=== PATIENT | male | born 1955 | race Caucasian/White ===

== ENCOUNTER → 2016-06-12 | Outpatient (CLI) | payer BC | END | disposition home or self-care (01) | LOC: PMGWOUND 11:32 | PROVIDERS: ATTEND Emergency Medicine Undersea and Hyperbaric Medicine | DX: I87.311 Chronic venous hypertension (idiopathic) with ulcer of right lower extremity (principal); L97.211 Non-pressure chronic ulcer of right calf limited to breakdown of skin | CPT/HCPCS: 11042; 29581 ==

== ENCOUNTER → 2016-06-15 | Outpatient (CLI) | payer BC | END | disposition home or self-care (01) | LOC: PMGWOUND 11:30 | PROVIDERS: ATTEND Preventive Medicine Undersea and Hyperbaric Medicine | DX: I87.311 Chronic venous hypertension (idiopathic) with ulcer of right lower extremity (principal); L97.212 Non-pressure chronic ulcer of right calf with fat layer exposed; Z72.89 Other problems related to lifestyle | CPT/HCPCS: 29581 ==

== ENCOUNTER → 2016-06-21 | Outpatient (CLI) | payer BC | END | disposition home or self-care (01) | LOC: PMGWOUND 11:52 | PROVIDERS: ATTEND Emergency Medicine Undersea and Hyperbaric Medicine | DX: I87.311 Chronic venous hypertension (idiopathic) with ulcer of right lower extremity (principal); L97.212 Non-pressure chronic ulcer of right calf with fat layer exposed; E78.00 Pure hypercholesterolemia, unspecified; Z72.89 Other problems related to lifestyle | CPT/HCPCS: 29581 ==

== ENCOUNTER → 2016-06-28 | Outpatient (CLI) | payer BC | END | disposition home or self-care (01) | LOC: PMGWOUND 09:28 | PROVIDERS: ATTEND Preventive Medicine Undersea and Hyperbaric Medicine | DX: I87.311 Chronic venous hypertension (idiopathic) with ulcer of right lower extremity (principal); L97.211 Non-pressure chronic ulcer of right calf limited to breakdown of skin; E78.00 Pure hypercholesterolemia, unspecified | CPT/HCPCS: 29581 ==

== ENCOUNTER → 2016-07-05 | Outpatient (CLI) | payer BC | END | disposition home or self-care (01) | LOC: PMGWOUND 09:59 | PROVIDERS: ATTEND Emergency Medicine Undersea and Hyperbaric Medicine | DX: I87.311 Chronic venous hypertension (idiopathic) with ulcer of right lower extremity (principal); L97.212 Non-pressure chronic ulcer of right calf with fat layer exposed; Z72.89 Other problems related to lifestyle | CPT/HCPCS: 99213 ==

== ENCOUNTER → 2018-10-20 | Outpatient (CLI) | payer BC ==
--- NOTE | 2018-10-20 15:02 | RAD ---
EXAM: Lower extremity arterial Doppler sonogram with ankle-brachial indices (LOIS). HISTORY: Claudication. TECHNIQUE: Doppler sonographic evaluation of the lower extremities was performed and pressure readings were assessed. FINDINGS: Right brachial pressure: 149 mmHg Left brachial pressure: 139 mmHg Right ankle pressure: 173 mmHg Right LOIS: 1.16 Left ankle pressure: 137 mmHg Left LOIS: 1.05 IMPRESSION: Normal bilateral ankle-brachial indices. Electronically signed by: Jazmyn Hanley MD (10/20/2018 2:59 PM) [place] [id number]
== END | disposition home or self-care (01) ==
LOC: US 13:36
PROVIDERS: ATTEND Family Medicine
DX: I70.213 Atherosclerosis of native arteries of extremities with intermittent claudication, bilateral legs (principal)
CPT/HCPCS: 93922

== ENCOUNTER 2020-04-17 16:18 | Observation (INO) | payer BC ==
[~2020-04-17] VITALS: Ht 188 cm; Wt 151.5 kg
--- NOTE | 2020-04-17 16:40 | PHYS DOC ---
Past Medical History Past Medical History: Hypertension General Adult EDM: Chief Complaint: right leg wound, pain HPI: HPI: Patient is a 64 year old male who was brought here by EMS from home due to right lower extremity pain and swelling for 1 month. Patient has history of venous stasis, he is having pain and swelling of Right leg a months ago, getting worse. The last few days his right lower extremity became ulcerated with draining discharge. Patient denies any cough or fever. Patient denies any history of diabetic, he denies being exposed to anybody who tested positive for COVID-19. Review of Systems: Review of Systems: Constitutional: Denies fever or chills. [] Eyes: Denies change in visual acuity. [] HENT: Denies nasal congestion or sore throat. [] Respiratory: Denies cough or shortness of breath. [] Cardiovascular: Denies chest pain or edema. [] GI: Denies abdominal pain, nausea, vomiting, bloody stools or diarrhea. [] : Denies dysuria. [] Musculoskeletal: Positive for right leg pain,swelling Integument: Positive for right leg ulcerated lesions. Neurologic: Denies headache, focal weakness or sensory changes. [] Endocrine: Denies polyuria or polydipsia. [] Lymphatic: Denies swollen glands. [] Psychiatric: Denies depression or anxiety. [] Heart Score: Risk Factors: Risk Factors: DM, Current or recent (<one month) smoker, HTN, HLP, family history of CAD, obesity. Risk Scores: Score 0 - 3: 2.5% MACE over next 6 weeks - Discharge Home Score 4 - 6: 20.3% MACE over next 6 weeks - Admit for Clinical Observation Score 7 - 10: 72.7% MACE over next 6 weeks - Early Invasive Strategies Physical Exam: PE: Constitutional: Well developed, well nourished, no acute distress, non-toxic appearance. [] HENT: Normocephalic, atraumatic, bilateral external ears normal, oropharynx moist, no oral exudates, nose normal. [] Eyes: PERRLA, EOMI, conjunctiva normal, no discharge. [] Neck: Normal range of motion, no tenderness, supple, no stridor. [] Cardiovascular:Heart rate regular rhythm, no murmur [] Lungs & Thorax: Bilateral breath sounds clear to auscultation [] Abdomen: Bowel sounds normal, soft, no tenderness, no masses, no pulsatile masses. [] Skin: Warm, dry, no erythema, no rash. [] Back: No tenderness, no CVA tenderness. [] Extremities right leg is swelling, erythema, tender to palpation. There are large ulcerated lesions on distal right leg, venous stasis appearing on the right leg, . Left leg with venous stasis. Both lower extremities are warm to the touch Neurologic: Alert and oriented X 3, normal motor function, normal sensory function, no focal deficits noted. [] Psychologic: Affect normal, judgement normal, mood normal. [] Current Patient Data: Labs: Laboratory Tests Test 04/17/20 17:08 White Blood Count 8.1 x10^3/uL Red Blood Count 4.74 x10^6/uL Hemoglobin 14.0 g/dL Hematocrit 41.7 % Mean Corpuscular Volume 88 fL Mean Corpuscular Hemoglobin 30 pg Mean Corpuscular Hemoglobin Concent 34 g/dL Red Cell Distribution Width 15.3 % Platelet Count 181 x10^3/uL Neutrophils (%) (Auto) 75 % Lymphocytes (%) (Auto) 12 % Monocytes (%) (Auto) 11 % Eosinophils (%) (Auto) 2 % Basophils (%) (Auto) 1 % Neutrophils # (Auto) 6.0 x10^3/uL Lymphocytes # (Auto) 0.9 x10^3/uL Monocytes # (Auto) 0.9 x10^3/uL Eosinophils # (Auto) 0.2 x10^3/uL Basophils # (Auto) 0.0 x10^3/uL Sodium Level 138 mmol/L Potassium Level 3.7 mmol/L Chloride Level 99 mmol/L Carbon Dioxide Level 27 mmol/L Anion Gap 12 Blood Urea Nitrogen 19 mg/dL Creatinine 1.0 mg/dL Estimated GFR (Cockcroft-Gault) 75.0 BUN/Creatinine Ratio 19 Glucose Level 110 mg/dL Calcium Level 8.6 mg/dL Total Bilirubin 0.5 mg/dL Aspartate Amino Transf (AST/SGOT) 37 U/L Alanine Aminotransferase (ALT/SGPT) 44 U/L Alkaline Phosphatase 79 U/L C-Reactive Protein, Quantitative 9.0 mg/L Total Protein 7.8 g/dL Albumin 3.8 g/dL Albumin/Globulin Ratio 1.0 Current Medications Medications (Trade) Dose Ordered Sig/Cherelle Route PRN Reason Start Time Stop Time Status Last Admin Dose Admin Vancomycin HCl (Vanco Per Pharmacy) 1 each PRN DAILY PRN MC SEE COMMENTS 04/17/20 16:45 UNV Ondansetron HCl (Zofran) 4 mg PRN Q8HRS PRN IV NAUSEA/VOMITING 04/17/20 18:00 04/18/20 17:59 Morphine Sulfate (Morphine Sulfate) 4 mg PRN Q2HR PRN IV PAIN 04/17/20 18:00 04/18/20 17:59 EKG: EKG: [] Radiology/Procedures: Radiology/Procedures: [] Course & Med Decision Making: Course & Med Decision Making Pertinent Labs and Imaging studies reviewed. (See chart for details) [] Dragon Disclaimer: Dragon Disclaimer: This electronic medical record was generated, in whole or in part, using a voice recognition dictation system. Departure Departure Impression: Primary Impression: Cellulitis and abscess of right leg Disposition: ADMITTED INPT THIS HOSP Admitting Physician: ISAAK (Dr. Rodrigues) Condition: STABLE Referrals: Kezia CRAFT MD (PCP) MELINAD DILLON DO Apr 17, 2020 16:40
[2020-04-17 17:33] LABS: BASO % 1 % (0-3); EOS # 0.2 x10^3/uL (0.0-0.7); EOS % 2 % (0-3); HEMATOCRIT 41.7 % (39.0-53.0); LYMPH # 0.9 x10^3/uL (1.0-4.8); LYMPH % 12 % (24-48); MEAN CORPUSCULAR HEMOGLOBIN 30 pg (25-35); MEAN CORPUSCULAR HGB CONC 34 g/dL (31-37); MEAN CORPUSCULAR VOLUME 88 fL (79-100); MONO # 0.9 x10^3/uL (0.0-1.1); MONO % 11 % (0-9); NEUT % 75 % (31-73); PLATELET COUNT 181 x10^3/uL (140-400); RED BLOOD COUNT 4.74 x10^6/uL (4.30-5.70); RED CELL DISTRIBUTION WIDTH 15.3 % (11.5-14.5); WHITE BLOOD COUNT 8.1 x10^3/uL (4.0-11.0)
--- NOTE | 2020-04-17 17:48 | PDOC1 ---
History and Physical Date of Admission Date of Admission DATE: 04/17/20 TIME: 17:47 Identification/Chief Complaint Chief Complaint Leg drainage Source Source: Caregiver, Chart review, Patient History of Present Illness History of Present Illness Mr Hardwick is a 64 yo M w/ PMHx HTN, morbid obesity, HLD who was brought here by EMS from home due to right lower extremity pain and swelling for 1 month. Patient has history of venous stasis, he is having pain and swelling of Right leg a months ago, getting worse. The last few days his right lower extremity became ulcerated with draining discharge. Patient denies any cough or fever. Patient denies any history of diabetic, he denies being exposed to anybody who tested positive for COVID-19. His friend and neighbor, Negro is present bedside to note that the son of his DPOA came to visit and drop off food for the patient and noted a feculent smell from the home. Patient was noted with socks and backside and right leg wound and fingernails saturated with fecal matter. Patient on interview asks to defer to his friend for many questions, he notes that he has some cognitive difficulties and delay. He lived with his mother until she some years ago and his mother designated an aunt as DPOA, who is currently a [facility] resident herself. WBC 8.1 with left shift, CRP 9. Venous doppler negative for DVT. Admitted for further treatment. Past Medical History Cardiovascular: HTN, Hyperlipidemia Past Surgical History Past Surgical History: No pertinent history Family History Family History: Alzheimer's Disease, High Cholestrol, Hypertension Social History Smoke: No ALCOHOL: none Drugs: None Current Problem List Problem List Problems Medical Problems: (1) Cellulitis and abscess of right leg Status: Acute Current Medications Current Medications Current Medications Vancomycin HCl (Vanco Per Pharmacy) 1 each PRN DAILY PRN MC SEE COMMENTS; Start 04/17/20 at 16:45; Status UNV Allergies Allergies: Coded Allergies: No Known Drug Allergies (Unverified , 04/17/20) ROS General: YES: Fatigue, Malaise; No: Chills, Night Sweats, Appetite, Other PSYCHOLOGICAL ROS: YES: Memory difficulties; No: Anxiety, Behavioral Disorder, Concentration difficultie, Decreased libido, Depression, Disorientation, Hallucinations, Hostility, Irritablity, Mood Swings, Obsessive thoughts, Physical abuse, Sexual abuse, Sleep disturbances, Suicidal ideation, Other Eyes: No Blurry vision, No Decreased vision, No Double vision, No Dry eyes, No Excessive tearing, No Eye Pain, No Itchy Eyes, No Loss of vision, No Photophobia, No Scotomata, No Uses contacts, No Uses glasses, No Other HEENT: No: Heacaches, Visual Changes, Hearing change, Nasal congestion, Nasal discharge, Oral lesions, Sinus pain, Sore Throat, Epistaxis, Sneezing, Snoring, Tinnitus, Vertigo, Vocal changes, Other ALLERGY AND IMMUNOLOGY: No: Hives, Insect Bite Sensitivity, Itchy/Watery Eyes, Nasal Congestion, Post Nasal Drip, Seasonal Allergies, Other Hematological and Lymphatic: No: Bleeding Problems, Blood Clots, Blood Transfusions, Brusing, Night Sweats, Pallor, Swollen Lymph Nodes, Other ENDOCRINE: No: Breast Changes, Galactorrhea, Hair Pattern Changes, Hot Flashes, Malaise/lethargy, Mood Swings, Palpitations, Polydipsia/polyuria, Skin Changes, Temperature Intolerance, Unexpected Weight Changes, Other Breast: No New/Changing Breast Lumps, No Nipple changes, No Nipple discharge, No Other Respiratory: No: Cough, Hemoptysis, Orthopnea, Pleuritic Pain, Shortness of breath, SOB with excertion, Sputum Changes, Stridor, Tachypnea, Wheezing, Other Cardiovascular: No Chest Pain, No Palpitations, No Orthopnea, No Paroxysmal Noc. Dyspnea, No Edema, No Lt Headedness, No Other Gastrointestinal: No Nausea, No Vomiting, No Abdominal Pain, No Diarrhea, No Constipation, No Melena, No Hematochezia, No Other Genitourinary: No Dysuria, No Frequency, No Incontinence, No Hematuria, No Retention, No Discharge, No Urgency, No Pain, No Flank Pain, No Other, No , No , No , No , No , No , No Musculoskeletal: Yes Gait Disturbance, Yes Joint Swelling, Yes Muscular Weakness; No Joint Pain, No Joint Stiffness, No Muscle Pain, No Pain In:, No Swelling In:, No Other Neurological: No Behavorial Changes, No Bowel/Bladder ControlChng, No Confusion, No Dizziness, No Gait Disturbance, No Headaches, No Impaired Coord/balance, No Memory Loss, No Numbness/Tingling, No Seizures, No Speech Problems, No Tremors, No Visual Changes, No Weakness, No Other Skin: Yes Hair Changes, Yes Rash, Yes Skin Lesion Changes; No Dry Skin, No Eczema, No Lumps, No Mole Changes, No Mottling, No Nail Changes, No Pruritus, No Other, No Acne Physical Exam General: Alert, Oriented X3, Cooperative, No acute distress HEENT: Atraumatic, PERRLA, EOMI, Mucous membr. moist/pink Lungs: Clear to auscultation, Normal air movement Heart: S1S2, RRR, no thrills, no rubs, no gallops, no murmurs Abdomen: Normal bowel sounds, Soft, No tenderness, No hepatosplenomegaly, No masses Rectal Exam: other (caked feces around rectum) Extremities: No clubbing, No cyanosis, Normal pulses, Other (3+ edema, venous stasis dermatitis, swollen and tender right ankle) Skin: Other ([id number] circumferential cellulitic changes of right leg, hot, red with active drainage and fluctuance on medial aspect of leg) Neuro: Normal gait, Normal speech, Strength at 5/5 X4 ext, Normal tone, Sensation intact, Cranial nerves 3-12 NL, Reflexes 2+ Psych/Mental Status: Mental status NL, Mood NL Vitals Vitals Vital Signs Date Time Temp Pulse Resp B/P (MAP) Pulse Ox O2 Delivery O2 Flow Rate FiO2 04/17/20 16:30 98.9 88 23 161/92 (115) 100 Room Air 98.9 Labs Labs Laboratory Tests Test 04/17/20 17:08 White Blood Count 8.1 x10^3/uL (4.0-11.0) Red Blood Count 4.74 x10^6/uL (4.30-5.70) Hemoglobin 14.0 g/dL (13.0-17.5) Hematocrit 41.7 % (39.0-53.0) Mean Corpuscular Volume 88 fL (79-100) Mean Corpuscular Hemoglobin 30 pg (25-35) Mean Corpuscular Hemoglobin Concent 34 g/dL (31-37) Red Cell Distribution Width 15.3 % (11.5-14.5) Platelet Count 181 x10^3/uL (140-400) Neutrophils (%) (Auto) 75 % (31-73) Lymphocytes (%) (Auto) 12 % (24-48) Monocytes (%) (Auto) 11 % (0-9) Eosinophils (%) (Auto) 2 % (0-3) Basophils (%) (Auto) 1 % (0-3) Neutrophils # (Auto) 6.0 x10^3/uL (1.8-7.7) Lymphocytes # (Auto) 0.9 x10^3/uL (1.0-4.8) Monocytes # (Auto) 0.9 x10^3/uL (0.0-1.1) Eosinophils # (Auto) 0.2 x10^3/uL (0.0-0.7) Basophils # (Auto) 0.0 x10^3/uL (0.0-0.2) Laboratory Tests Test 04/17/20 17:08 White Blood Count 8.1 x10^3/uL (4.0-11.0) Red Blood Count 4.74 x10^6/uL (4.30-5.70) Hemoglobin 14.0 g/dL (13.0-17.5) Hematocrit 41.7 % (39.0-53.0) Mean Corpuscular Volume 88 fL (79-100) Mean Corpuscular Hemoglobin 30 pg (25-35) Mean Corpuscular Hemoglobin Concent 34 g/dL (31-37) Red Cell Distribution Width 15.3 % (11.5-14.5) Platelet Count 181 x10^3/uL (140-400) Neutrophils (%) (Auto) 75 % (31-73) Lymphocytes (%) (Auto) 12 % (24-48) Monocytes (%) (Auto) 11 % (0-9) Eosinophils (%) (Auto) 2 % (0-3) Basophils (%) (Auto) 1 % (0-3) Neutrophils # (Auto) 6.0 x10^3/uL (1.8-7.7) Lymphocytes # (Auto) 0.9 x10^3/uL (1.0-4.8) Monocytes # (Auto) 0.9 x10^3/uL (0.0-1.1) Eosinophils # (Auto) 0.2 x10^3/uL (0.0-0.7) Basophils # (Auto) 0.0 x10^3/uL (0.0-0.2) Images Images RLE venous doppler: There is no sonographic evidence for deep venous thrombosis involving the visualized deep venous structures of the right lower extremity. IMPRESSION: No acute DVT in the right lower extremities. VTE Prophylaxis Ordered VTE Prophylaxis Devices: No VTE Pharmacological Prophylaxi: Yes Assessment/Plan Assessment/Plan A/P: Right leg cellulitis and abscess - with active drainage with size and concern for failed self care would be inappropriate for outpatient treatment. Vancomycin and zosyn initiated. Wound consult. Elevate extremity HTN - cont DANIEL HLD - cont statin Morbid obesity - counseled on diet and lifestyle modification Failure to thrive - per his friend his self care has declined significantly over the past several months with unlivable home conditions FEN - General diet PPX - lovenox FULL CODE Dispo - inpatient Justifications for Admission Other Justification JANAK BOCANEGRA MD Apr 17, 2020 17:48
[2020-04-17] MEDS ORDERED: MORPHINE SULFATE 4 MG/ML VIAL. IV PRN (18:00)
[2020-04-17] MEDS ORDERED: ONDANSETRON PF 4 MG/2 ML VIAL. IV PRN ×2 (18:00→22:00)
[2020-04-17 18:03] LABS: ALBUMIN 3.8 g/dL (3.4-5.0); CALCIUM 8.6 mg/dL (8.5-10.1); TOTAL BILIRUBIN 0.5 mg/dL (0.2-1.0); TOTAL PROTEIN 7.8 g/dL (6.4-8.2)
[2020-04-17 18:04] LABS: POTASSIUM 3.7 mmol/L (3.5-5.1)
--- NOTE | 2020-04-17 18:43 | RAD ---
Exam: Right lower extremity venous duplex study INDICATION: Leg swelling TECHNIQUE: Using a combination of real-time ultrasound imaging and color-flow and pulse Doppler imagi ng techniques along with graded compression and augmentation, duplex evaluation of the deep venous sy stems of rightlower extremity was performed. Multiple images were obtained. Findings: There is no sonographic evidence for deep venous thrombosis involving the visualized deep venous stru ctures of the right lower extremity. IMPRESSION: No acute DVT in the right lower extremities. Electronically signed by: Chaz Cuenca MD (04/17/2020 6:41 PM) [facility]
[2020-04-17] MEDS ORDERED: VANCOMYCIN 2 GM in IV NORMAL SALINE 500ML BAG 500 ML IV ONE (19:00)
[2020-04-17] MEDS: VANCOMYCIN PER PHARMACY MC PRN (19:05)
--- NOTE | 2020-04-17 19:09 | NUR ---
Pharmacy Vancomycin Dosing Note S: Consulted to monitor and dose vancomycin started 04/17/20. O: NETO ORTIZ is a 64 year old M with Abscess, Cellulitis LABS: Last BUN: 19 Last Creatinine: 1.0 Creatinine Clearance: >100 mL/min Last WBC: 8.1 Tmax (past 24 hours): AFEBRILE Vancomycin Dosing: Dosing Weight: Adjusted at 106kg Target Trough: 10-20 A: Based on: VANCO dosing guidelines P: 1. Begin Vancomycin 2000mg LOAD dose, then 1500 mg IV q12h 2. Follow up Trough level on 04/19/20 at 0730 3. Pharmacy will continue to monitor, follow and adjust therapy as needed. BRENDA BAIRES [facility], 04/17/20 [id number]
--- NOTE | 2020-04-17 20:50 | NUR ---
Patient admitted to [address] [place] [address] for cellulitis and wounds to right leg. Right lower extremity is red and edematous with lesions present; left lower extremity also has some redness. Photographs taken of both legs and placed on the chart. Patient is alert and oriented, and when RN asked patient where he is, patient promptly stated "I am in the hospital, I had to come here because of that leg". He has a brother that lives in [place] but states that he hardly sees his brother anymore. Patient denies having any other next to kin. He does have two friends that come and check on him; Ngero Bennett and Ren Recinos. Contact information for Ren Recinos is [phone]. Patient lives alone on [address] that he says his parents left him. Call light, bedside table, and urinal placed within reach and patient instructed on use.
[2020-04-17 21:15] VITALS: BP 121/72
[2020-04-17] MEDS ORDERED: traMADol 50 MG TABLET PO PRN (22:00)
[2020-04-17] MEDS ORDERED: PIP/TAZO PER PHARMACY MC PRN (22:00)
[2020-04-17] MEDS ORDERED: ENOXAPARIN 40 MG/0.4 ML SYRINGE. SQ SCH (22:00)
[2020-04-17] MEDS ORDERED: ACETAMINOPHEN 325 MG TABLET. PO PRN (22:00)
[2020-04-17] MEDS ORDERED: LOVA40TA2 PO (22:14)
[2020-04-17] MEDS ORDERED: ENAL10TA11 PO (22:14)
[2020-04-17] MEDS ORDERED: FURO80TA3 PO (22:14)
[2020-04-17] MEDS ORDERED: PIPERACILLIN/TAZOBACTAM 3.375 GM in IV NORMAL SALINE 50ML 50 ML IV ONE (22:15)
[2020-04-17] MEDS: PSYLLIUM HUSK (SUGAR FREE) 1 PKT PACKET PO SCH (22:53)
[2020-04-17 23:35] VITALS: BP 118/75
[2020-04-18 03:22] VITALS: BP 97/52
--- NOTE | 2020-04-18 05:12 | NUR ---
Patient had an incontinent episode this morning. RN asked patient if he had an accident, he said no, he had spilled water on himself. RN informed the patient that his sheet were wet and yellow stained. Sheets and gown changed. Patient assisted back to bed. RN asked patient if he had been having problems at home, patient stated that sometimes he falls out of bed but he gets right back up. Patient also stated that sometimes when he falls, the fire department comes.
[2020-04-18] MEDS: PIPERACILLIN/TAZOBACTAM 3.375 GM in IV NORMAL SALINE 50ML 50 ML IV SCH ×3 (06:07→17:35)
[2020-04-18 07:17] VITALS: BP 84/39
[2020-04-18] MEDS: VANCOMYCIN 1.5 GM in IV NORMAL SALINE 500ML BAG 500 ML IV SCH ×2 (08:26→19:37)
[2020-04-18 08:39] LABS: BASO % 0 % (0-3); EOS # 0.2 x10^3/uL (0.0-0.7); EOS % 3 % (0-3); HEMATOCRIT 36.5 % (39.0-53.0); HEMOGLOBIN 12.2 g/dL (13.0-17.5); LYMPH # 0.8 x10^3/uL (1.0-4.8); LYMPH % 11 % (24-48); MEAN CORPUSCULAR HEMOGLOBIN 29 pg (25-35); MEAN CORPUSCULAR HGB CONC 33 g/dL (31-37); MEAN CORPUSCULAR VOLUME 87 fL (79-100); MONO % 12 % (0-9); NEUT # 5.7 x10^3/uL (1.8-7.7); NEUT % 74 % (31-73); PLATELET COUNT 160 x10^3/uL (140-400); RED BLOOD COUNT 4.19 x10^6/uL (4.30-5.70); RED CELL DISTRIBUTION WIDTH 15.2 % (11.5-14.5); WHITE BLOOD COUNT 7.7 x10^3/uL (4.0-11.0)
[2020-04-18 09:14] LABS: CALCIUM 8.7 mg/dL (8.5-10.1); CREATININE 0.9 mg/dL (0.7-1.3); GFR 84.7; POTASSIUM 3.7 mmol/L (3.5-5.1)
[2020-04-18] MEDS: VANCOMYCIN PER PHARMACY MC PRN (09:15)
[2020-04-18 10:34] VITALS: BP 95/44
[2020-04-18] MEDS: ENOXAPARIN 40 MG/0.4 ML SYRINGE. SQ SCH ×2 (10:36→21:01)
--- NOTE | 2020-04-18 11:34 | PDOC ---
[employer] PROGRESS NOTE Date of Service DOS: DATE: 04/18/20 TIME: 11:29 Chief Complaint Chief Complaint Right leg abscess with cellulitis History of Present Illness History of Present Illness 04-18-20 - Pt seen and examined - Christian RN - Chart reviewed Vitals/I&O Vitals/I&O: Vital Signs Date Time Temp Pulse Resp B/P (MAP) Pulse Ox O2 Delivery O2 Flow Rate FiO2 04/18/20 10:34 98.3 74 18 95/44 (61) 94 Room Air 98.3 I & O 04/17/20 04/17/20 04/18/20 15:00 23:00 07:00 Intake Total 360 ml Output Total 250 ml Balance 110 ml Physical Exam General: Alert, Oriented X3, Cooperative, No acute distress Heart: Regular rate, Normal S1, Normal S2 Lungs: Clear Abdomen: Normal bowel sounds, Soft, No tenderness, No masses Extremities: No clubbing, No cyanosis, Normal pulses, Other (3+ edema, venous stasis dermatitis, swollen and tender right ankle) Skin: Other ([id number] circumferential cellulitic changes of right leg, hot, r ed with active drainage and fluctuance on medial aspect of leg) Labs Labs: Laboratory Tests Test 04/17/20 17:08 04/18/20 08:00 04/18/20 08:20 White Blood Count 8.1 x10^3/uL (4.0-11.0) 7.7 x10^3/uL (4.0-11.0) Red Blood Count 4.74 x10^6/uL (4.30-5.70) 4.19 x10^6/uL (4.30-5.70) Hemoglobin 14.0 g/dL (13.0-17.5) 12.2 g/dL (13.0-17.5) Hematocrit 41.7 % (39.0-53.0) 36.5 % (39.0-53.0) Mean Corpuscular Volume 88 fL (79-100) 87 fL (79-100) Mean Corpuscular Hemoglobin 30 pg (25-35) 29 pg (25-35) Mean Corpuscular Hemoglobin Concent 34 g/dL (31-37) 33 g/dL (31-37) Red Cell Distribution Width 15.3 % (11.5-14.5) 15.2 % (11.5-14.5) Platelet Count 181 x10^3/uL (140-400) 160 x10^3/uL (140-400) Neutrophils (%) (Auto) 75 % (31-73) 74 % (31-73) Lymphocytes (%) (Auto) 12 % (24-48) 11 % (24-48) Monocytes (%) (Auto) 11 % (0-9) 12 % (0-9) Eosinophils (%) (Auto) 2 % (0-3) 3 % (0-3) Basophils (%) (Auto) 1 % (0-3) 0 % (0-3) Neutrophils # (Auto) 6.0 x10^3/uL (1.8-7.7) 5.7 x10^3/uL (1.8-7.7) Lymphocytes # (Auto) 0.9 x10^3/uL (1.0-4.8) 0.8 x10^3/uL (1.0-4.8) Monocytes # (Auto) 0.9 x10^3/uL (0.0-1.1) 1.0 x10^3/uL (0.0-1.1) Eosinophils # (Auto) 0.2 x10^3/uL (0.0-0.7) 0.2 x10^3/uL (0.0-0.7) Basophils # (Auto) 0.0 x10^3/uL (0.0-0.2) 0.0 x10^3/uL (0.0-0.2) Sodium Level 138 mmol/L (136-145) 140 mmol/L (136-145) Potassium Level 3.7 mmol/L (3.5-5.1) 3.7 mmol/L (3.5-5.1) Chloride Level 99 mmol/L (98-107) 105 mmol/L (98-107) Carbon Dioxide Level 27 mmol/L (21-32) 25 mmol/L (21-32) Anion Gap 12 (6-14) 10 (6-14) Blood Urea Nitrogen 19 mg/dL (8-26) 13 mg/dL (8-26) Creatinine 1.0 mg/dL (0.7-1.3) 0.9 mg/dL (0.7-1.3) Estimated GFR (Cockcroft-Gault) 75.0 84.7 BUN/Creatinine Ratio 19 (6-20) Glucose Level 110 mg/dL (70-99) 103 mg/dL (70-99) Calcium Level 8.6 mg/dL (8.5-10.1) 8.7 mg/dL (8.5-10.1) Total Bilirubin 0.5 mg/dL (0.2-1.0) Aspartate Amino Transf (AST/SGOT) 37 U/L (15-37) Alanine Aminotransferase (ALT/SGPT) 44 U/L (16-63) Alkaline Phosphatase 79 U/L (46-116) C-Reactive Protein, Quantitative 9.0 mg/L (0-3.3) Total Protein 7.8 g/dL (6.4-8.2) Albumin 3.8 g/dL (3.4-5.0) Albumin/Globulin Ratio 1.0 (1.0-1.7) Thyroid Stimulating Hormone (TSH) 3.662 uIU/mL (0.358-3.74) Review of Systems Review of Systems: No headache or dizziness. No vomiting or diarrhea. Pt oriented and in NAD. Assessment and Plan Assessmemt and Plan Problems Medical Problems: (1) Cellulitis and abscess of right leg Status: Acute Assessment: 1. Right leg abscess with cellulitis Plan: 1. Cont Vancomycin and Zosyn 2. Cont IV saline 3. Cont home meds 4. Code full 5. DVT prophylaxis 6. Social work consulted 7. Discharge disposition pending Comment Review of Relevant I have reviewed the following items maryuri (where applicable) has been applied. Medications: Current Medications Medications (Trade) Dose Ordered Sig/Cherelle Route PRN Reason Start Time Stop Time Status Last Admin Dose Admin Vancomycin HCl (Vanco Per Pharmacy) 1 each PRN DAILY PRN MC SEE COMMENTS 04/17/20 19:00 04/18/20 09:15 Morphine Sulfate (Morphine Sulfate) 4 mg PRN Q2HR PRN IV MODERATE TO SEVERE PAIN 04/17/20 18:00 04/18/20 17:59 04/17/20 19:02 Vancomycin HCl 2 gm/Sodium Chloride 500 ml @ 250 mls/hr 1X ONCE IV 04/17/20 19:00 04/17/20 20:59 DC 04/17/20 19:03 Vancomycin HCl 1.5 gm/Sodium Chloride 500 ml @ 250 mls/hr Q12H IV 04/18/20 08:00 04/18/20 08:26 Psyllium Hydrophilic Mucilloid (Metamucil Fiber Packet) 1 pkt QHS PO 04/17/20 21:45 04/17/20 22:53 Enoxaparin Sodium (Lovenox 40mg Syringe) 40 mg Q24H SQ 04/17/20 22:00 04/18/20 09:44 DC 04/17/20 22:54 Piperacillin Sod/ Tazobactam Sod 3.375 gm/Sodium Chloride 50 ml @ 100 mls/hr 1X ONCE IV 04/17/20 22:15 04/17/20 22:44 DC 04/17/20 22:54 Piperacillin Sod/ Tazobactam Sod 3.375 gm/Sodium Chloride 50 ml @ 100 mls/hr Q6HRS IV 04/18/20 06:00 04/18/20 06:07 Enoxaparin Sodium (Lovenox 40mg Syringe) 40 mg Q12HR SQ 04/18/20 10:00 04/18/20 10:36 Justifications for Admission Other Justification TROY ROBLES III DO Apr 18, 2020 11:34
--- NOTE | 2020-04-18 12:44 | PDOC2 ---
Chief Complaint: Chief Complaint: RLE cellulitis with open wound and hx of venous insufficiency Vital Signs: Vital Signs: Vital Signs Date Time Temp Pulse Resp B/P (MAP) Pulse Ox O2 Delivery O2 Flow Rate FiO2 04/17/20 16:18 98.3 86 25 161/95 (117) 99 Room Air 98.3 Vital Signs Date Time Temp Pulse Resp B/P (MAP) Pulse Ox O2 Delivery O2 Flow Rate FiO2 04/18/20 10:34 98.3 74 18 95/44 (61) 94 Room Air 98.3 Allergies: Allergies: Allergies Coded Allergies Type Severity Reaction Last Updated Verified No Known Drug Allergies 04/17/20 No Medications: Home Meds Reported Medications Furosemide (FUROSEMIDE) 80 Mg Tablet, 1 TAB PO DAILY for Edema for 90 Days, #90 04/17/20 Lovastatin (LOVASTATIN) 40 Mg Tablet, 1 TAB PO DAILY for HLD for 90 Days, #90 04/17/20 Enalapril Maleate (ENALAPRIL MALEATE) 10 Mg Tablet, 1 TAB PO DAILY for HTN for 90 Days, #90 04/17/20 Date of Onset Pt states wounds present for a month. Swelling and drainage gradually worsening over last several weeks. Patient denies systemic symptoms to include fever or flulike symptoms. Patient also denies painful symptoms of the right lower extremity. Patient states that he has been told that he has venous insufficiency in the past and patient does wear compression stockings daily to help with swelling. Patient denies history of work-up for arterial insufficiency in the past. Patient's outpatient PCP, Dr. Livingston who has followed the patient for open ulcerations of his right lower extremity in the past. PMH Hypertension, hyperlipidemia PSH Prior to admission, patient lived at home and was independent with ADLs. Patient has a sister who is active and involved in medical decision making. Patient denies history of tobacco use, alcohol use or illicit drug use. Review of Systems: Patient denies painful symptoms at this time. Patient states that he has been eating and drinking well without nausea, vomiting or diarrhea. Patient denies cough or shortness of breath. Patient states that he has been sleeping well without mood swings. Physical Exam Patient awake and alert 64-year-old male in no apparent distress. Patient pleasant in conversation, does have developmental delays. Patient is a good historian. Respirations are even and unlabored. Patient is on room air not requiring supplemental oxygen at this time. Abdomen is soft, nondistended, nontender and obese. Skin is warm, dry and pink. The right lower extremity presents with 3-4+ pitting edema, maroon to purple discoloration which is blanchable. The medial aspect of the right lower extremity presents with a pustular which was easily deroofed with gauze. Culture obtained of underlying pustulant drainage. Wound measures 1.6 x 1.3 x 0.1 cm, wound bed 100% granulation. The right lateral extremity presents with a 10.3 x 3.2 by 0.1 open ulceration. Wound bed is 50% slough, 50% granulation. Edges are attached and nonrolling. Moderate serosanguineous drainage present. No odor following cleansing. Erythema does descend to the dorsal aspect of the foot. Pedal pulses present. The left lower extremity does present with mild lipodermatosclerosis. Brawny edema present. Pedal pulses present. No open wounds noted to the left lower extremity at this time A/P 1) right lower extremity cellulitis 2) venous insufficiency, rule out underlying arterial insufficiency 3) open ulcerations to the right lower extremity -Obtain arterial Doppler and ABIs to rule out underlying arterial insufficiency -Culture obtained from medial right lower extremity wound, sent for C&S -ID following patient for antibiotics, patient currently on vancomycin and Zosyn -Wound care to right lower extremity: Cleanse and pat dry. Apply skin prep to surrounding tissue. Cover with ABD and secure with Kerlix. Change twice daily or as needed if dressing loose or saturated. -Tubigrip, size F, to bBLE for mild compression while ruling out arterial insufficiency. CHIDI WEINBERG APRN Apr 18, 2020 12:44
--- NOTE | 2020-04-18 12:44 | NUR ---
Wound/Ostomy Care Wound Type/Assessment: Wound consult for RLE cellulitis. Huong ALMENDAREZ APRN present for assessment. pt has RLE cellulitis with open wounds to medial and lateral lower leg. Medial wound had purulent drainage, culture obtained. BLE have hemosiderin staining and RLE is edematous and reddened. Treatment Recommendations/Plan: Cleanse wounds, cover with ABD and kerlix. Change daily and PRN for drainage. Elevate leg at all times. Wound care will reevaluate wound dressing after drainage subsides Education provided: TANESHA POC and PU prevention. Offloading surface/device: na. full skin assessment not completed as pt is in chair and on phone with family. Recommended Referrals/Tests: arterial doppler with LOIS ordered by Huong SONI Discharge Recommendations for dressings:
[2020-04-18] MEDS: LACTOBACILLUS RHAMNOSUS GG 1 CAPSULE. PO SCH ×2 (13:05→20:57)
--- NOTE | 2020-04-18 14:30 | RAD ---
Right lower extremity arterial duplex study 04/18/2020 CLINICAL HISTORY: Nonhealing wound right lower leg. TECHNIQUE: Using a combination real-time ultrasound imaging and color-flow and pulse Doppler imaging techniques, duplex evaluation of major arterial structures of the right lower extremity with was perf ormed. Multiple images were obtained. FINDINGS: Mild to moderate scattered atheromatous/atherosclerotic plaque formation seen involving the major arterial structures of the right lower extremity. Monophasic arterial waveforms are seen throu ghout. The peak systolic velocities are not significantly elevated. No hemodynamically significant st enosis is seen. The right peroneal and anterior tibial arteries within the right calf are not visuali zed the right dorsalis pedis artery is patent with peak systolic velocity 68 cm/s. IMPRESSION: Mild to moderate atheromatous/atherosclerotic plaque formation is seen scattered througho ut the major arterial structures of the right lower extremity. No hemodynamically significant stenosi s is seen. Electronically signed by: Jeremi Marquez MD (04/18/2020 2:28 PM) [id number]
[2020-04-18 14:50] VITALS: BP 124/41
--- NOTE | 2020-04-18 15:45 | NUR ---
SW following. Discussed with RN, pt from home alone, room air, cardiac diet. SW met with pt to discuss how he is doing at home - per chart, pt has some development delays or learning disability. . Pt reports he is doing pretty well at home, and can take care of his home okay. Pt reports he does his own cooking, takes the trash out, gets the mail, bathing, makes his own coffee. Pt reported he does not drive, but when he needs to go somewhere he calls his friend, Ren Recinos. Pt reported Ren Recinos and Negro Bennett do his grocery shopping for him, and help him when he needs it. Pt knows he can call his friends when he needs help. Pt reported he has another friend, Kylee Aguillon who lives in [place]. Pt reported he gets his medications through the mail. Pt reports having a cane, walker, and shower chair at home - but he mostly uses his cane. PT/OT recommending SNU, SW to meet with pt tomorrow morning (04/19/20) to discuss SNU. Wound care following. SW will continue to follow.
[2020-04-18 19:00] VITALS: BP 101/54
[2020-04-18] MEDS: PSYLLIUM HUSK (SUGAR FREE) 1 PKT PACKET PO SCH (20:57)
[2020-04-18 23:00] VITALS: BP 113/62
[2020-04-19] MEDS: PIPERACILLIN/TAZOBACTAM 3.375 GM in IV NORMAL SALINE 50ML 50 ML IV SCH ×2 (00:03→06:00)
[2020-04-19 00:12] LABS: HEMOGLOBIN A1C 6.4 % (4.8-5.6)
[2020-04-19 03:00] VITALS: BP 111/69
[2020-04-19 07:00] VITALS: BP 139/56
[2020-04-19] MEDS: LACTOBACILLUS RHAMNOSUS GG 1 CAPSULE. PO SCH (08:16)
[2020-04-19] MEDS: ENOXAPARIN 40 MG/0.4 ML SYRINGE. SQ SCH (08:16)
[2020-04-19 08:49] LABS: VANC TR 10.7 mcg/mL (10.0-20.0)
[2020-04-19 09:15] LABS: ALBUMIN 2.9 g/dL (3.4-5.0); ALBUMIN/GLOBULIN RATIO 0.8 (1.0-1.7); CALCIUM 8.3 mg/dL (8.5-10.1); CREATININE 0.9 mg/dL (0.7-1.3); GFR 84.7; POTASSIUM 3.8 mmol/L (3.5-5.1); TOTAL BILIRUBIN 0.5 mg/dL (0.2-1.0); TOTAL PROTEIN 6.5 g/dL (6.4-8.2)
[2020-04-19] MEDS: VANCOMYCIN PER PHARMACY MC PRN (09:57)
--- NOTE | 2020-04-19 09:57 | NUR ---
SW following. Discussed with RN, pt from home, room air, cardiac diet, COVID-19 negative. PT/OT recommending SNU. KRISTAL met with pt (no isolation precautions at the time), pt agreeable to SNU wanted SW to check with Kylee dumas. KRISTAL spoke with Kylee TAYLOR - she requested [facility], SW explained [facility] are not currently taking admissions. Discussed [facility] and [facility]. Kylee wanted KRISTAL to speak to pt about either of those two, but has not heard good things about [facility]. Pt agreeable to [facility]. Cece from [facility] advised they will come do a bedside assessment of pt today. Referral faxed to [facility], awaiting acceptance decision and insurance auth. RN notified. KRISTAL will continue to follow. Addendum: 04/19/20 at 1329 by SAMANTHA GIRALDO [facility] accepted pt for SNF, and insurance has approved. KRISTAL faxed discharge orders. Transportation arranged for between 1430 and 1500. RN and pt notified. Pt will call his friend Kylee to tell her. Choice of vendor form completed by patient. No further SW needs.
[2020-04-19] MEDS: VANCOMYCIN 1.5 GM in IV NORMAL SALINE 500ML BAG 500 ML IV SCH (10:02)
--- NOTE | 2020-04-19 10:13 | NUR ---
Pharmacy Vancomycin Dosing Note S: Consulted to monitor and dose vancomycin started 04/17/20. O: NETO ORTIZ is a 64 year old M with Abscess, Cellulitis Other Antibiotics: zosyn LABS: Last BUN: 11 Last Creatinine: 0.9 Creatinine Clearance: 112 mL/min Last WBC: 7.7 Last Procalcitonin: Tmax (past 24 hours): 99.2 Microbiology: Abcess: No organisms seen I/O: 360/250 Drug Levels: Last Trough level: 10.7 on 04/19/20 at 0815 Last dose given 04/18/20 at 1937 Vancomycin Dosing: Dosing Weight: Adjusted Target Trough: 10-20 A: Based on: trough P: 1. Continue Vancomycin 1500 mg IV q12h 2. Follow up Trough level in 5-7 days as needed 3. Pharmacy will continue to monitor, follow and adjust therapy as needed. Cynthia Rubin RPH, 04/19/20 1011
[2020-04-19 10:16] LABS: BASO % 0 % (0-3); EOS # 0.3 x10^3/uL (0.0-0.7); EOS % 7 % (0-3); HEMOGLOBIN 12.3 g/dL (13.0-17.5); LYMPH # 0.8 x10^3/uL (1.0-4.8); LYMPH % 16 % (24-48); MEAN CORPUSCULAR HEMOGLOBIN 29 pg (25-35); MEAN CORPUSCULAR HGB CONC 33 g/dL (31-37); MEAN CORPUSCULAR VOLUME 88 fL (79-100); MONO # 0.7 x10^3/uL (0.0-1.1); MONO % 12 % (0-9); NEUT # 3.5 x10^3/uL (1.8-7.7); NEUT % 65 % (31-73); PLATELET COUNT 141 x10^3/uL (140-400); RED BLOOD COUNT 4.19 x10^6/uL (4.30-5.70); RED CELL DISTRIBUTION WIDTH 15.2 % (11.5-14.5); WHITE BLOOD COUNT 5.3 x10^3/uL (4.0-11.0)
[2020-04-19 11:06] VITALS: BP 130/62
--- NOTE | 2020-04-19 11:09 | PDOC ---
[employer] PROGRESS NOTE Date of Service DOS: DATE: 04/19/20 TIME: 11:06 Chief Complaint Chief Complaint Right leg abscess with cellulitis History of Present Illness History of Present Illness 04-18-20 - Pt seen and examined - Dw RN - Chart reviewed 04-19-20 - discussed discharge with pt and potential move to observational unit - Pt seen and examined - Dw RN - Chart reviewed Vitals/I&O Vitals/I&O: Vital Signs Date Time Temp Pulse Resp B/P (MAP) Pulse Ox O2 Delivery O2 Flow Rate FiO2 04/19/20 08:00 Room Air 04/19/20 07:00 98.4 70 16 139/56 (83) 96 98.4 Physical Exam General: Alert, Oriented X3, Cooperative, No acute distress Heart: Regular rate, Normal S1, Normal S2 Lungs: Clear Abdomen: Normal bowel sounds, Soft, No tenderness, No masses Extremities: No clubbing, No cyanosis, Normal pulses, Other (3+ edema, venous stasis dermatitis, swollen and tender right ankle) Skin: Other ([id number] circumferential cellulitic changes of right leg, hot, r ed with active drainage and fluctuance on medial aspect of leg) Labs Labs: Laboratory Tests Test 04/19/20 08:15 White Blood Count 5.3 x10^3/uL (4.0-11.0) Red Blood Count 4.19 x10^6/uL (4.30-5.70) Hemoglobin 12.3 g/dL (13.0-17.5) Hematocrit 37.0 % (39.0-53.0) Mean Corpuscular Volume 88 fL (79-100) Mean Corpuscular Hemoglobin 29 pg (25-35) Mean Corpuscular Hemoglobin Concent 33 g/dL (31-37) Red Cell Distribution Width 15.2 % (11.5-14.5) Platelet Count 141 x10^3/uL (140-400) Neutrophils (%) (Auto) 65 % (31-73) Lymphocytes (%) (Auto) 16 % (24-48) Monocytes (%) (Auto) 12 % (0-9) Eosinophils (%) (Auto) 7 % (0-3) Basophils (%) (Auto) 0 % (0-3) Neutrophils # (Auto) 3.5 x10^3/uL (1.8-7.7) Lymphocytes # (Auto) 0.8 x10^3/uL (1.0-4.8) Monocytes # (Auto) 0.7 x10^3/uL (0.0-1.1) Eosinophils # (Auto) 0.3 x10^3/uL (0.0-0.7) Basophils # (Auto) 0.0 x10^3/uL (0.0-0.2) Sodium Level 141 mmol/L (136-145) Potassium Level 3.8 mmol/L (3.5-5.1) Chloride Level 106 mmol/L (98-107) Carbon Dioxide Level 26 mmol/L (21-32) Anion Gap 9 (6-14) Blood Urea Nitrogen 11 mg/dL (8-26) Creatinine 0.9 mg/dL (0.7-1.3) Estimated GFR (Cockcroft-Gault) 84.7 BUN/Creatinine Ratio 12 (6-20) Glucose Level 120 mg/dL (70-99) Calcium Level 8.3 mg/dL (8.5-10.1) Total Bilirubin 0.5 mg/dL (0.2-1.0) Aspartate Amino Transf (AST/SGOT) 28 U/L (15-37) Alanine Aminotransferase (ALT/SGPT) 29 U/L (16-63) Alkaline Phosphatase 56 U/L (46-116) Total Protein 6.5 g/dL (6.4-8.2) Albumin 2.9 g/dL (3.4-5.0) Albumin/Globulin Ratio 0.8 (1.0-1.7) Vancomycin Level Trough 10.7 mcg/mL (10.0-20.0) Vancomycin Last Dose Date 04/18/20 Vancomycin Last Dose Time 1999 Assessment and Plan Assessmemt and Plan Problems Medical Problems: (1) Cellulitis and abscess of right leg Status: Acute 04-19-2020 Assessment - Right leg abscess with cellulitis Plan - potential d/c to observation/SNU this afternoon - continue to monitor abscess - PO abx - discuss pt with returned case inspector Comment Review of Relevant I have reviewed the following items maryuri (where applicable) has been applied. Justifications for Admission Other Justification TROY ROBLES III DO Apr 19, 2020 11:09
--- NOTE | 2020-04-19 11:17 | SNU/HH DC ---
DISCHARGE ORDERS DISCHARGE INFORMATION: FINAL DIAGNOSIS Problems Medical Problems: (1) Cellulitis and abscess of right leg Status: Acute CONDITION ON DISCHARGE: Stable CODE STATUS: Code Status: Full HALFWAY: SNF STAY <30 DAYS: Yes HOSPICE: HOSPICE: No HOSPICE EVAL & TREAT: No LTAC: ADMIT TO LTAC: No POST DISCHARGE ORDERS: ACTIVITY ORDERS: Resume previous activity DIET AFTER DISCHARGE: Cardiac TREATMENT/EQUIPMENT ORDERS: Physical Therapy For: Evalulation/Treatment Occupational Therapy For: Evaluation/Treatment DISCHARGE MEDICATIONS: Home Meds Reported Medications Furosemide (FUROSEMIDE) 80 Mg Tablet, 1 TAB PO DAILY for Edema for 90 Days, #90 04/17/20 Lovastatin (LOVASTATIN) 40 Mg Tablet, 1 TAB PO DAILY for HLD for 90 Days, #90 04/17/20 Enalapril Maleate (ENALAPRIL MALEATE) 10 Mg Tablet, 1 TAB PO DAILY for HTN for 90 Days, #90 04/17/20 TROY ROBLES III DO Apr 19, 2020 11:17
--- NOTE | 2020-04-19 11:18 | SNU/HH DC ---
DISCHARGE WITH HOME HEALTH DISCHARGE INFORMATION: Final Diagnosis: Problems Medical Problems: (1) Cellulitis and abscess of right leg Status: Acute Condition on Discharge: Stable CODE STATUS: Code Status: Full HOME HEALTH: Face to Face: I certify this patient is under my care and that I, or a nurse practitioner or physician's licensed physical therapy assistant working with me, had a face to face encounter that meets the physician face to face encounter requirements with this patient on []. Medical Complications: Other (Cellulitis) Mcc For: Assess & Educate Safety RN For Eval/Treatment: Yes Physical Therapy For: Evalulation/Treatment Occupational Therapy For: Evaluation/Treatment Home Health Aide For: Self-care DOWEL POINTER For: Community Resources Pt Meets Homebound Status: Poor coordination w/ amb. POST DISCHARGE ORDERS: Activity Instructions for Disc: Resume previous activity DIET AFTER DISCHARGE: Cardiac CERTIFICATION STATEMENT: Certification Statement: Certification Statement: Based on the above finding, I certify that this patient is confined to the home and needs intermittent nursing home care, physical therapy and/or speech therapy, or continues to need occupational therapy.~ This patient is under my care, and I have initiated the establishment of the plan of care.~ This patient will be followed by myself or a community physician who will periodically review the plan of care. Home Meds Reported Medications Furosemide (FUROSEMIDE) 80 Mg Tablet, 1 TAB PO DAILY for Edema for 90 Days, #90 04/17/20 Lovastatin (LOVASTATIN) 40 Mg Tablet, 1 TAB PO DAILY for HLD for 90 Days, #90 04/17/20 Enalapril Maleate (ENALAPRIL MALEATE) 10 Mg Tablet, 1 TAB PO DAILY for HTN for 90 Days, #90 04/17/20 TROY ROBLES III DO Apr 19, 2020 11:18
--- NOTE | 2020-04-19 12:20 | DS ---
DATE OF DISCHARGE: 04/19/2020 ADMISSION DIAGNOSES: 1. Right leg cellulitis. 2. Cognitive impairment. 3. Hypertension. 4. Hyperlipidemia. 5. Obesity. DISCHARGE DIAGNOSIS: Resolving right leg wound. CONSULTS: Wound care. HOSPITAL COURSE: The patient is a pleasant middle-aged male, who presented with right leg abscess. He was admitted. The above consults were obtained. We gave him IV antibiotics. Today, I saw and examined him, he is at his baseline. We plan to discharge and I am going to leave a prescription for p.o. Augmentin and we are going to arrange home health. DISPOSITION: Home with home health. ACTIVITY: As tolerated. DIET: Low sodium. MEDICATIONS: Please see MRAD. TOTAL TIME: 33 minutes. TROY ROBLES DO DR: KRISTINA/romaine JOB#: [id number] / [id number]
[2020-04-19] MEDS ORDERED: AMOXICILLIN/K CLAV 875/125MG TABLET. PO SCH (21:00)
--- NOTE | 2020-04-21 12:46 | NUR ---
IV Vancomycin started on 04/17/20 at 19:03--end time 21:03 on 04/17/20 IV Vancomycin started on 04/18/20 at 08:26--end time 10:26 on 04/18/20 IV Vancomycin started on 04/18/20 at 19:37--end time 21:37 on 04/18/20 IV Zosyn started 04/17/20 at 22:54--end time 23:24 on 04/17/20 IV Zosyn started 04/18/20 at 06:07--end time 06:37 on 04/18/20 IV Zosyn started 04/18/20 at 13:05--end time 13:35 on 04/18/20 IV Zosyn started 04/18/20 at 17:35--end time 18:05 on 04/18/20 IV Zosyn started 04/19/20 at 00:03--end time 00:33 on 04/19/20
== END 2020-04-19 15:10 ==
LOC: ER 16:18 → 4 NORTH 17:45 → INTOOBSV 17:45
PROVIDERS: ADMIT Internal Medicine; ATTEND Internal Medicine
DX: L03.115 Cellulitis of right lower limb (principal); Z20.828 Contact with and (suspected) exposure to other viral communicable diseases; I87.8 Other specified disorders of veins; I10 Essential (primary) hypertension; E78.5 Hyperlipidemia, unspecified; L02.415 Cutaneous abscess of right lower limb; R62.7 Adult failure to thrive; E66.01 Morbid (severe) obesity due to excess calories; Z68.41 Body mass index [BMI] 40.0-44.9, adult; Z79.899 Other long term (current) drug therapy
CPT/HCPCS: 36415; 80048; 80053; 80202; 83036; 84443; 85025; 86140; 87071; 87075; 93926; 93971; 96365; 96366; 96367; 96368; 96372; 96375; 97110; 97116; 97162; 97166; 97535; 99284; G0378; J1650; J2270; J2543; J3370; J7040; U0003; 87077; G0379